=== PATIENT | male | born 2000 | race Caucasian/White ===

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

== ENCOUNTER 2025-03-20 17:05 | Emergency (ER) | payer OTHER ==
[~2025-03-20] VITALS: Ht 177.8 cm; Wt 104.3 kg
[2025-03-20 17:39] VITALS: BP 137/68
[2025-03-20] MEDS ORDERED: Robaxin750 MG PO (17:55)
[2025-03-20] MEDS ORDERED: LIDOCAINE1 EACH TOP (17:55)
== END 2025-03-20 17:59 | disposition home or self-care (01) ==
LOC: ER 17:05
DX: M54.50 Low back pain, unspecified (principal); Z88.8 Allergy status to other drugs, medicaments and biological substances
CPT/HCPCS: 99283